=== PATIENT | female | born 1975 | race Caucasian/White ===

== ENCOUNTER 2020-11-08 13:24 | Outpatient (CLI) | payer OTHER, SELFPAY ==
--- NOTE | 2020-11-08 13:31 | US_ITS ---
WS: [id number] THYROID ULTRASOUND History: Nontoxic goiter. Technique: Ultrasound examination of the thyroid and adjacent soft tissues is performed. FINDINGS: Right lobe: 5.6 cm x 1.8 cm x 1.7 cm. Volume: 9.2 cm3. Mildly enlarged gland with a few scattered subcentimeter nodules. There is a colloid cyst in the infe rior pole. No concerning nodule for follow-up. Left lobe: 5.3 cm x 1.7 cm x 1.2 cm. Volume: 5.9 cm3. Normal size gland. There are 2 nodules within the thyroid gland. There is an isoechoic nodule in the mid gland measuring 1.0 x 0.8 x 2.2 cm. There is some mild peripheral vascularity. This nodule is iso echoic to the normal gland without punctate foci. Probably benign. There is an additional subcentimet er nodule in the inferior pole measuring 8 x 6 x 4 mm. Isthmus: 0.3 cm. US/US thyroid [id number] Impression: Isoechoic lobulated nodule in the mid LEFT thyroid gland. Ultrasound features s uggest this is probably benign. Recommend follow-up ultrasound in 12 months.
== END 2020-11-08 13:25 | disposition home or self-care (01) ==
PROVIDERS: PCP Nurse Practitioner Family; Visit Provider Nurse Practitioner Family
DX: E04.9 Nontoxic goiter, unspecified (principal); E04.1 Nontoxic single thyroid nodule
CPT/HCPCS: 76536

== ENCOUNTER 2022-10-08 11:00 | Outpatient (CLI) | payer OTHER, SELFPAY ==
--- NOTE | 2022-10-08 12:24 | XRR_ITS ---
PROCEDURE INFORMATION: Exam: XR Lumbosacral Spine Exam date and time: 10/08/2022 12:25 PM Age: 47 years old Clinical indication: Low back pain; Additional info: Lower back pain TECHNIQUE: Imaging protocol: Radiologic exam of the lumbosacral spine. Views: 2 or 3 views. COMPARISON: CR XR lumbar spine 2-3V* [id number] 01/26/2017 9:52 AM FINDINGS: Bones/joints: Normal. No acute fracture. Normal alignment. Soft tissues: Unremarkable. XR/XR lumbar spine 2-3V* [id number] IMPRESSION: No acute findings.
--- NOTE | 2022-10-08 12:25 | XRR_ITS ---
PROCEDURE INFORMATION: Exam: XR Left Shoulder Exam date and time: 10/08/2022 12:25 PM Age: 47 years old Clinical indication: Pain; Shoulder; Left; Additional info: Lt. Shoulder pain TECHNIQUE: Imaging protocol: Radiologic exam of the Left shoulder. Views: 2 or more views. COMPARISON: CR XR ribs LT 2V* [id number] 04/18/2021 4:19 PM FINDINGS: Bones/joints: Metallic orthopedic hardware is seen in the cervical spine. Negative for acute bony abnormality. Soft tissues: Normal. XR/XR shoulder LT min 2V* [id number] IMPRESSION: 1. No acute left shoulder bone abnormality. 2. Metallic hardware cervical spine.
== END 2022-10-08 11:01 | disposition home or self-care (01) ==
PROVIDERS: PCP Nurse Practitioner Family; Visit Provider Nurse Practitioner Family
DX: M54.50 Low back pain, unspecified (principal); G89.29 Other chronic pain; M54.30 Sciatica, unspecified side; M25.512 Pain in left shoulder
CPT/HCPCS: 72100; 73030

== ENCOUNTER 2022-12-11 10:11 | Outpatient (CLI) | payer OTHER, SELFPAY ==
--- NOTE | 2022-12-11 10:29 | MR_ITS ---
WS: [id number] MRI LUMBAR SPINE NONCONTRAST HISTORY: VERTEBROGENIC LOW BACK PAIN, LEFT leg pain. COMPARISON: 10/08/2022 radiograph TECHNIQUE: Sagittal and axial multisequence imaging is submitted. Cervical fusion at C5-6. T6 benign hemangioma. Normal lumbar alignment with no compression fractures or marrow edema. Minimal disc desiccation at L4-5 without loss of height. Conus terminates normally at L1-2 disc level. L1-L2: Normal. L2-L3: Mild ligamentum flavum hypertrophy. No stenosis. L3-L4: Mild ligamentum flavum hypertrophy. No stenosis. L4-L5: Mild annular disc bulge. There is a small central annular fissure. Mild ligamentum flavum and facet arthritis. Small amount of fluid in the facet joints. There is mild disc contact on the agata ing L5 nerve roots. Slightly greater on the LEFT. No high-grade stenosis. L5-S1: Minimal facet arthritis. No stenosis. Paravertebral soft tissues are normal. MR/MR lumbar spine wo con* [id number] IMPRESSION: 1. No significant disc protrusions or stenosis. 2. Mild annular disc bulge at L4-5 with a central annular fissure. 3. Mild disc bulging at L4-5 is contacting the traversing L5 nerve roots sligh tly greater on the LEFT.
== END 2022-12-11 10:12 | disposition home or self-care (01) ==
PROVIDERS: PCP Nurse Practitioner Family; Visit Provider Nurse Practitioner
DX: M79.605 Pain in left leg (principal); M51.36 Other intervertebral disc degeneration, lumbar region; M51.26 Other intervertebral disc displacement, lumbar region
CPT/HCPCS: 72148

== ENCOUNTER 2023-04-08 22:24 | Emergency (ER) | payer OTHER, SELFPAY ==
[2023-04-08 22:34] VITALS: BP 155/94; PULSE 72; RESP 18; TEMP 36.9; O2SAT 100; BMI 33.8
--- NOTE | 2023-04-08 22:38 | ECG_ITS ---
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 Measurements Intervals [place] Rate: 68 P: 29 NE: 103 QRS: -11 QRSD: 91 T: 17 QT: 362 QTc: 386 Interpretive Statements SINUS RHYTHM WITH SHORT NE INTERVAL No previous ECG available for comparison Electronically Signed On 04-09-2023 12:16:11 CDT by Santhosh Gilmore M.D. [id number]
--- NOTE | 2023-04-08 22:59 | W.ED.CHESTPA ---
HPI - Chest Pain General: Chief Complaint: Chest Pain Stated Complaint: Chest pain Time Seen by Provider: 04/08/23 22:59 History of Present Illness: 47-year-old lady presenting with chest and back pain associated with shortness of breath. Reports intermittent symptoms across her chest with heaviness over the past 2 weeks. Not specifically exertional. [place] different with acute onset today. Severe radiation to the back from the right chest and between her shoulder blades. Mild shortness of breath. Denies known specific provoking event. Has had leg pain though also has apparently rheumatoid arthritis and fibromyalgia. No other specific changes in health, exacerbating, or alleviating factors identified. Review of Systems General: Reports: 10 or more systems reviewed and unremarkable except in HPI and below PFSH ED PFSH: Medical History (Updated 04/21/23 @ 08:25 by Shailesh Rhodes MD) No significant past medical history Surgical History (Updated 04/21/23 @ 08:25 by Shailesh Rhodes MD) No significant past surgical history Physical Exam Const: COMMON NORMALS: alert GENERAL APPEARANCE: cooperative and well developed HENMT: COMMON NORMALS: normocephalic and atraumatic HEAD & SCALP: normocephalic and atraumatic Eye: COMMON NORMALS: conjunctivae normal CONJUNCTIVA: Yes conjunctivae normal SCLERA: sclerae normal Neck/C-Spine: COMMON NORMALS: supple GENERAL: Yes trachea midline Resp: COMMON NORMALS: normal respiratory effort and clear to auscultation bilaterally EFFORT & INSPECTION: Yes able to speak in complete sentences AUSCULTATION: clear to auscultation bilaterally Cardio: COMMON NORMALS: regular rate and regular rhythm RATE: regular rate RHYTHM: regular rhythm GI: COMMON NORMALS: Soft to palpation PALPATION: Yes Soft to palpation and No Tenderness to palpation present (GI) Extremity: GENERAL: Yes normal exam except as noted and No edema Neuro: COMMON NORMALS: moves all extremities SENSORIUM/ORIENTATION: Yes alert and No Orientation impaired Psych: COMMON NORMALS: mental status grossly normal and Normal thought process present THOUGHT PROCESS: Normal thought process present Course Vital Signs: Vital signs: Vital Signs Temperature 98.4 F 04/08/23 22:34 Pulse Rate 54 L 04/09/23 02:52 Respiratory Rate 17 04/09/23 02:52 Blood Pressure 138/67 04/09/23 02:52 Pulse Oximetry 99 04/09/23 02:52 Oxygen Delivery Me thod Room Air 04/09/23 02:30 MDM - Chest Pain Medical Decision Making 47-year-old lady presenting with chest pain and shortness of breath. Currently also having back pain. Exam as above. Nontoxic. EKG notable for sinus rhythm with short MD interval, normal other intervals and axis. No STEMI. Labs with no significant hematologic or embolic abnormalities. Negative initial and 2-hour delta troponin. D-dimer negative. Chest x-ray with no lobar consolidation or pneumothorax. Patient is low risk by heart score. Improved with analgesia, fluids, GI cocktail, antiemetic. Also given aspirin during ED course. The results of ED evaluation were discussed with the patient including prescriptions and/or symptomatic cares (if applicable) including appropriate and responsible use, followup plan, and return precautions. The patient verbalized understanding and felt safe for discharge. Medical Records I reviewed the patient's medical records. Lab Data I reviewed the patient's lab results. 04/08/23 23:24 04/08/23 23:24 Radiology Impressions Chest X-Ray 04/08/23 23:15 IMPRESSION: 1. No definite CHF or pneumonia. 2. Other findings discussed above. Laboratory Results WBC 10.2 10^3/uL (4.0-10.0) H 04/08/23 23: RBC 4.56 10^6/uL (4.1-5.3) 04/08/23 23: Hgb 13.2 g/dL (11.5-15.3) 04/08/23 23: Hct 40.6 % (37.0-47.0) 04/08/23 23: MCV 89.0 fl (81-99) 04/08/23 23: MCH 28.9 pg (28.0-34.0) 04/08/23 23: MCHC 32.5 g/dL (30.0-36.0) 04/08/23 23: RDW 13.1 % (12.1-15.1) 04/08/23 23: Plt Count 228 10^3/cmm (130-400) 04/08/23 23: MPV 10.5 fL (7.4-10.4) H 04/08/23 23: Neut % (Auto) 45.2 % 04/08/23 23:24 Lymph % (Auto) 45.6 % 04/08/23 23:24 Teller % (Auto) 7.3 % 04/08/23 23:24 Eos % (Auto) 1.2 % 04/08/23 23:24 Baso % (Auto) 0.4 % 04/08/23 23:24 Neut # (Auto) 4.63 10^3/uL (1.8-7.7) 04/08/23 23: Lymph # (Auto) 4.7 10^3/uL (0.8-4.8) 04/08/23 23:24 Teller # (Auto) 0.8 10^3/uL (0.2-0.9) 04/08/23 23: Eos # (Auto) 0.1 10^3/uL (0.0-0.8) 04/08/23 23: Baso # (Auto) 0.0 10^3/uL (0.0-0.1) 04/08/23 23: Nucleated RBC % (auto) 0 % 04/08/23 23: Nucleated RBCs # 0.0 /100WBC 04/08/23 23:24 D-Dimer 0.39 ug/mIFEU (0-0.59) 04/08/23 23:24 Sodium 140 mmol/L (136-145) 04/08/23 23:24 Potassium 4.1 mmol/L (3.5-5.1) 04/08/23 23:24 Chloride 104 mmol/L (98-107) 04/08/23 23:24 Carbon Dioxide 24 mmol/L (22-29) 04/08/23 23:24 Anion Gap 16.1 (5-19) 04/08/23 23:24 BUN 22 mg/dL (6-20) H 04/08/23 23:24 Creatinine 0.7 mg/dL (0.5-0.9) 04/08/23 23:24 GFR Calculation 90.5 mL/min (90-130) 04/08/23 23:24 Glucose 100 mg/dL (65-115) 04/08/23 23:24 Calculated Osmolality 293 mOsm/kg (285-295) 04/08/23 23:24 Calcium 9.9 mg/dL (8.5-10.5) 04/08/23 23:24 Total Bilirubin 0.2 mg/dL (0.15-1.2) 04/08/23 23:24 AST 12 U/L (0-32) 04/08/23 23:24 ALT 12 U/L (0-33) 04/08/23 23:24 Alkaline Phosphatase 88 U/L (35-105) 04/08/23 23:24 Troponin T Baseline 6 ng/L (0-10) 04/08/23 23:24 Troponin T 120 Minute 6.00 ng/L (0-10) 04/09/23 01:38 Delta Troponin T 0 ABS# (0-10) 04/09/23 01:38 NT-Pro-B Natriuret Pep 67 pg/mL (0-125) 04/08/23 23:24 Total Protein 7.1 g/dL (6.6-8.7) 04/08/23 23:24 Albumin 4.6 g/dL (3.5-5.2) 04/08/23 23:24 Globulin 2.5 g/dL (1.3-4.6) 04/08/23 23:24 Lipase 49 U/L (13-60) 04/08/23 23:24 Discharge Plan Discharge Patient Disposition: Home Clinical Impression: Chest pain Condition: Stable Discharge Orders: Discharge ED (Routine); Ordered 04/09/23 Ordered By: Shailesh Rhodes Referrals: Rox Padilla FNP [Primary Care Provider] - Discharge Diet: Usual diet Discharge Activity: Resume usual activity Patient Instructions: Chest Pain (ED) Activity Restrictions/Additional Instructions: Thank you for visiting the emergency department. You were seen and evaluated for chest pain. The exact cause of your symptoms is unclear however based on the risk stratification as discussed does not need inpatient management at this time. I will message case management for cardiology follow-up for consideration of additional testing. Please also follow-up with your primary care provider. Return for uncontrolled symptoms or anything else that you are concerned about and feel needs emergency department evaluation. 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
--- NOTE | 2023-04-08 23:15 | XRR_ITS ---
PROCEDURE INFORMATION: Exam: XR Chest Exam date and time: 04/08/2023 11:32 PM Age: 47 years old Clinical indication: Pain; Chest pressure; Additional info: Cp TECHNIQUE: Imaging protocol: Radiologic exam of the chest. Views: 1 view. COMPARISON: CR XR ribs LT 2V* [id number] 04/18/2021 4:19 PM FINDINGS: Lungs: No CHF/pulmonary edema. Visible lungs appear essentially clear. Pleural spaces: No visible pneumothorax. No definite pleural fluid. Heart/Mediastinum: Heart size is within normal limits. Bones/joints: Prior lower cervical spine fusion surgery. XR/XR chest 1V portable [id number] IMPRESSION: 1. No definite CHF or pneumonia. 2. Other findings discussed above.
[2023-04-08] MEDS: aspirin 81 mg Chew Tablet 324 MG PO (23:40)
[2023-04-08] MEDS: sodium chloride 0.9% 1,000 ML 999 ML IV (23:40)
[2023-04-08] MEDS: ondansetron 2 mg/ML SDV 2 mL 4 MG IVP (23:40)
[2023-04-08] MEDS: ketorolac 30 mg/mL INJ 15 MG IVP (23:40)
[2023-04-08 23:41] LABS: Basophils % 0.4 %; Eosinophils # 0.1 10^3/uL (0.0-0.8); Eosinophils % 1.2 %; Hematocrit 40.6 % (37.0-47.0); Hemoglobin 13.2 g/dL (11.5-15.3); Lymphocytes # 4.7 10^3/uL (0.8-4.8); Lymphocytes % 45.6 %; Mean Corpuscular HGB Conc 32.5 g/dL (30.0-36.0); Mean Corpuscular Hemoglobin 28.9 pg (28.0-34.0); Mean Platelet Volume 10.5 fL (7.4-10.4); Monocytes # 0.8 10^3/uL (0.2-0.9); Monocytes % 7.3 %; Neutrophils # 4.63 10^3/uL (1.8-7.7); Neutrophils % 45.2 %; Nucleated Red Blood Cells % 0 %; Platelet Count 228 10^3/cmm (130-400); Red Blood Count 4.56 10^6/uL (4.1-5.3); Red Cell Distribution Width 13.1 % (12.1-15.1); White Blood Count 10.2 10^3/uL (4.0-10.0)
[2023-04-08 23:52] VITALS: BP 156/78; PULSE 56; O2SAT 98
[2023-04-08 23:56] LABS: D Dimer 0.39 ug/mIFEU (0-0.59)
[2023-04-09 00:06] LABS: Troponin(5th) Baseline 6 ng/L (0-10)
[2023-04-09 00:14] LABS: Alanine Aminotransferase 12 U/L (0-33); Albumin Level 4.6 g/dL (3.5-5.2); Alkaline Phosphatase 88 U/L (35-105); Anion Gap 16.1 (5-19); Aspartate Amino Transferase 12 U/L (0-32); Blood Urea Nitrogen 22 mg/dL (6-20); Calcium 9.9 mg/dL (8.5-10.5); Carbon Dioxide 24 mmol/L (22-29); Chloride 104 mmol/L (98-107); Globulin 2.5 g/dL (1.3-4.6); Glomerular Filtration Rate 90.5 mL/min (90-130); Glucose 100 mg/dL (65-115); Lipase 49 U/L (13-60); NT Pro B Type Natriuretic Pept 67 pg/mL (0-125); Osmolality Calculated 293 mOsm/kg (285-295); Potassium 4.1 mmol/L (3.5-5.1); Sodium 140 mmol/L (136-145); Total Bilirubin 0.2 mg/dL (0.15-1.2); Total Protein 7.1 g/dL (6.6-8.7)
[2023-04-09 00:30] VITALS: BP 141/59; PULSE 60; O2SAT 99
[2023-04-09] MEDS: lidocaine 2% viscous 15 ML, aluminum-mag hydrox-simethicon 30 ML, sucralfate oral liq 1 GM PO (00:58)
[2023-04-09 01:00] VITALS: BP 150/69; PULSE 55; RESP 18; O2SAT 99
--- NOTE | 2023-04-09 01:16 | PC.NURSE ---
Pt report received from Lata BEATTY. Rounded on pt, pt resting in bed. Pt denies needs at this time.
--- NOTE | 2023-04-09 01:20 | ECG_ITS ---
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 Measurements Intervals [place] Rate: 62 P: 32 CA: 111 QRS: 3 QRSD: 92 T: 32 QT: 390 QTc: 398 Interpretive Statements SINUS RHYTHM WITH SINUS ARRHYTHMIA WITH SHORT CA INTERVAL LOW QRS VOLTAGE IN PRECORDIAL LEADS [QRS DEFLECTION < 1.0 mV IN CHEST LEADS] Compared to ECG 04/08/2023 22:43:06 Low QRS voltage now present Electronically Signed On 04-09-2023 12:22:20 CDT by Santhosh Gilmore M.D. [id number]
[2023-04-09 01:30] VITALS: BP 128/62; PULSE 53; RESP 10; O2SAT 100
[2023-04-09 02:00] VITALS: BP 138/61; PULSE 52; RESP 18; O2SAT 100
[2023-04-09 02:24] LABS: Troponin 5 2HR Delta 0 ABS# (0-10)
[2023-04-09 02:30] VITALS: PULSE 72; RESP 16; O2SAT 99
[2023-04-09 02:52] VITALS: BP 138/67; PULSE 54; RESP 17; O2SAT 99
== END 2023-04-09 02:57 | disposition home or self-care (01) ==
PROVIDERS: Emergency Provider Emergency Medicine; PCP Nurse Practitioner Family
DX: R07.89 Other chest pain (principal)
CPT/HCPCS: 36415; 71045; 80053; 83690; 83880; 84484; 85025; 85378; 93005; 96361; 96374; 96375; 99285; J1885; J2405; J7030

== ENCOUNTER → 2023-05-20 11:27 | Outpatient (BNVA) | payer OTHER, SELFPAY | PROVIDERS: PCP Family Medicine; Visit Provider Internal Medicine | DX: M25.50 Pain in unspecified joint (principal); G47.00 Insomnia, unspecified; G25.81 Restless legs syndrome; L40.9 Psoriasis, unspecified | CPT/HCPCS: 36415; 72202; 73120; 80053; 82306; 82550; 82607; 82728; 83516; 83540; 83735; 84100; 84443; 84550; 85025; 85651; 86140; 86160; 86162; 86200; 86235; 86255; 86376; 86431; 86480; 86704; 86803; 87340 ==

== ENCOUNTER 2023-07-29 14:27 | Outpatient (CLI) | payer OTHER, SELFPAY ==
[2023-07-29 15:06] LABS: Erythrocyte Sedimentation Rate 4 mm/hr (0-15)
[2023-07-29 15:26] LABS: Creatine Phosphokinase 80 U/L (26-192)
[2023-07-31 15:26] LABS: Beef (27) IgE <0.10 kU/L; Beef Class 0; Lamb (F88) IgE <0.10 kU/L; Lamb Class 0; Pork (F26) IgE <0.10 kU/L; Pork Class 0
[2023-08-02 02:45] LABS: Gliadin Ab.IgA 1.2 U/mL; Gliadin Ab.IgG <1.0 U/mL
[2023-08-02 02:49] LABS: Tissue Transglutaminase IgA Ab <1.0 U/mL; Tissue transglutaminase Ab.IgG <1.0 U/mL
[2023-08-03 16:35] LABS: Immunoglobulin A 122 mg/dL (47-310)
[2023-08-03 19:29] LABS: Galactose-alpha-1,3 IgE <0.10 kU/L (<0.10)
[2023-08-07 00:59] LABS: 14.3.3 ETA Protein <0.2 ng/mL (<0.2)
== END 2023-07-29 14:28 | disposition home or self-care (01) ==
PROVIDERS: PCP Family Medicine; Visit Provider Internal Medicine
DX: G25.81 Restless legs syndrome (principal); G47.00 Insomnia, unspecified; M25.50 Pain in unspecified joint
CPT/HCPCS: 36415; 82550; 82784; 83516; 83520; 85651; 86003; 86008; 86140

== ENCOUNTER → 2023-12-24 08:50 | Outpatient (BNVA) | payer OTHER, SELFPAY | PROVIDERS: PCP Family Medicine; Referring Provider Anesthesiology Pain Medicine; Visit Provider Orthopaedic Surgery | DX: M54.50 Low back pain, unspecified (principal); M54.9 Dorsalgia, unspecified | CPT/HCPCS: 36415; 72072; 72110; 80053; 81003; 85025 ==

== ENCOUNTER 2024-01-08 06:37 | Day surgery (SDC) | payer OTHER, SELFPAY ==
[2024-01-08] VITALS (13 sets, daily range): BP systolic 98–139; BP diastolic 46–90; PULSE 55–86; RESP 14–23; TEMP 36.1–36.9; O2SAT 95–100; BMI 34.7
--- NOTE | 2024-01-08 | XR_ITS ---
WS: [id number] C-ARM RADIOGRAPHS LUMBAR SPINE; 2 IMAGES HISTORY: CHARLIE PICS COMPARISON: None available. Intraoperative imaging during spinal decompression. Decompression marker indicates the L4-5 level on the RIGHT. IMPRESSION: Intraoperative imaging during spinal decompression.
[2024-01-08] MEDS: sodium chloride 0.9% 1,000 ML 30 ML IV (07:41)
--- NOTE | 2024-01-08 08:08 | W.PM.OPSUD ---
Surgery/Procedure H&P Update DATE OF PROCEDURE: January 08, 2024 DATE H&P PERFORMED: 12/24/23 H&P UPDATE INFORMATION: I have reviewed H&P completed within last 30 days, I have examined patient prior to procedure and No changes to prior documentation PREOP DIAGNOSIS: Lumbar stenosis with neurogenic claudication PLANNED PROCEDURE: Operation Date: 01/08/24 08:10 Proposed Procedures p Lumbar Spine Decompression Lumbar Decompression(Not Applicable) - Lb Rebolledo DO
--- NOTE | 2024-01-08 08:18 | ANES.PREANE2 ---
Pre-Anesthetic Assessment Height/Weight: Height 1.57 m Weight 86.183 kg O2 Del Method Room Air 01/08/24 06:49 Preop Diagnosis: Lumbar stenosis with neurogenic claudication Operation Date: 01/08/24 08:10 Proposed Procedures p Lumbar Spine Decompression Lumbar Decompression(Not Applicable) - Lb Rebolledo DO Last intake: Intake Last Liquid Date 01/07/24 Last Liquid Time 21:30 Last Solid Date 01/08/24 Last Solid Time 18:00 Social No alcohol and No tobacco Exam alert, oriented x 3, clear to auscultation bilaterally and regular rate & rhythm Airway Submandibular: within normal limits Cervical ROM: within normal limits Mallampati: Class II Pulmonary Cough Musc/skel Lower Back Pain Anesthetic Plan ASA status: 2 Anesthesia: General Medications/Allergies Home Medications Medication Instructions Recorded Confirmed Last Taken Type pregabalin 50 mg capsule 75 mg PO BID 01/07/24 01/07/24 01/07/24 History ropinirole 1 mg tablet 1 mg PO BID 01/07/24 01/07/24 01/07/24 History oxycodone 5 mg tablet 5 mg PO DAILY 01/08/24 01/08/24 01/04/24 History Allergies Allergy/AdvReac Type Severity Reaction Status Date / Time nalbuphine [From Nubain] Allergy Unknown Verified 01/07/24 16:31 Current Medications Generic Name Dose Route Start Last Admin Trade Name Freq PRN Reason Stop Dose Admin Sodium Chloride 1,000 mls @ 30 mls/hr 01/08/24 07:15 01/08/24 07:41 Sodium Chloride 0.9% IV 30 mls/hr .Q24H ANGIE Administration PFSH Anesthesia Medical History Lumbago No significant past medical history Surgical History No significant past surgical history Data Anesthesia Cardiac Studies: No Data to Display
[2024-01-08] MEDS: ceFAZolin 2,000 MG in sodium chloride 0.9% (plus) 50 ML 100 MG IV (08:24)
[2024-01-08] MEDS: lidocaine-epi 1% 20 mL INJ INJECTION (09:03)
--- NOTE | 2024-01-08 09:20 | P.OP_ITS ---
Operative Report Date of procedure: January 08, 2024 Pre-op diagnosis: Lumbar stenosis with neurogenic claudication Post-op diagnosis: same Procedure done: L4-5 laminectomy with partial facetectomy Surgeon: Lb Rebolledo DO Estimated blood loss (mL): 5 Procedure: L4-5 laminectomy with partial facetectomy Patient is brought to the operative suite. After undergoing anesthesia they are placed in the prone position. All areas of impingement are well padded. Patient is then prepped and draped in the normal sterile fashion. A skin incision is made over the L4-5 level. This is confirmed under c-arm guidance. A series of dilators are passed and the tubular retractor is docked on the L4 lamina. A bovie is used to clear the soft tissue off the lamina and the L 4/5 facet joint. A high speed larry is then used to perform the laminectomy and take down the medial aspect of the L 4/5 facet joint. A kerrison rongeure was then used to take down the remaining lamina and smooth the edge of the laminectomy up to the point where the ligamentum flavum attaches. Attention was then brought to the medial aspect of the facet joint. The remaining medial aspect of the superior and inferior aspect of the facet joint were taken down with the kerrison from the pedicle of L4 to L 5. The facet j oint had significant hypertrophy. Attention was then brought to the Ligamentum Flavum. The ligament was taken down from the lamina of L4 to L5 and out medially to the remaining facet joint. The ligament was thick. The dura was then exposed. The dura was in good repair. The L4 nerve was then traced with a curette out the L4/5 foramen and found to be adequately decompressed. The L5 nerve was traced with a curette around the L5 pedicle. The lateral recess was opened with a kerrison helping to further decompress the L5 nerve. Wound is then irrigated copiously with saline and surgiflo is used to stop any bleeding. The tubular retractor is removed and the wound is closed with vicryl and monocryl suture. Glue is then used to protect the wound. A sterile dressing is then placed. Patient was then placed in the supine position and transferred to the PACU in stable condition.
[2024-01-08] MEDS: fentaNYL 50 mcg/mL INJ 2mL IVP (09:48)
[2024-01-08] MEDS: oxyCODONE 5 mg IR Tab/Cap PO (10:13)
--- NOTE | 2024-01-08 11:17 | ANE.PACU2 ---
Inpatient post-anesthesia follow up: Vital signs: Temperature 98.5 F Pulse Rate 56 Respiratory Rate 18 Blood Pressure 129/56 Pulse Oximetry 100 Oxygen Delivery Me thod Room Air Oxygen Flow Rate Fraction of Inspir ed Oxygen Hydration adequate: Yes Nausea and vomiting: No Pain level: 3 Mental status: Baseline
== END 2024-01-08 10:49 | disposition home or self-care (01) ==
PROVIDERS: PCP Family Medicine; Visit Provider Orthopaedic Surgery
PROC: (CPT 63005; principal; 2024-01-08 08:10)
DX: M48.062 Spinal stenosis, lumbar region with neurogenic claudication (principal)
CPT/HCPCS: 63047; 72100; 76000; J0690; J1100; J1885; J2405; J2704; J3010; J3490; J7030

== ENCOUNTER 2024-06-20 11:36 | Outpatient (CLI) | payer OTHER, SELFPAY ==
--- NOTE | 2024-06-20 11:42 | MR_ITS ---
WS: [id number] MRI CERVICAL SPINE NONCONTRAST TECHNIQUE: Sagittal T1, T2 and STIR imaging. Axial T2, gradient, and fiesta imaging. CLINICAL INFORMATION: CERVICALGIA COMPARISON: None. FINDINGS: Straightening of the normal cervical lordosis. Prior postoperative changes ACDF C5-6. Cord signal is normal. Disc bulging worse C6-7. C2-C3: Mild facet arthropathy. Spinal canal and foramina are patent. C3-C4: Mild facet arthropathy. Spinal canal and foramen are patent. C4-C5: Mild facet arthropathy. Mild disc bulging. Spinal canal and foramen are patent. C5-C6: Postoperative changes ACDF. Mild facet arthropathy. Mild LEFT foraminal narrowing. Mild facet arthropathy. C6-C7: Anterior cervical fusion. Mild disc osteophyte complex with a tiny RIGHT paracentral protrusio n and slight indentation on the cervical cord. Spinal canal remains patent. Mild bilateral bony wade inal narrowing. Mild facet arthropathy. C7-T1: No significant disc bulging. Spinal canal and foramen are patent. Visualized brain stem structures: Normal. Prevertebral soft tissues: Normal. 7.4 mm T2 hyperintense RIGHT thyroid nodule. MR/MR cervical spin wo con* [id number] IMPRESSION: 1. Straightening of the normal cervical lordosis. Prior ACDF C5-6. 2. Tiny RIGHT paracentral protrusion C6-7 with slight indentation of the cervi adria cord. Spinal canal remains patent. 3. Mild LEFT C5-C6 and bilateral C6-C7 bony foraminal narrowing.
== END 2024-06-20 11:37 | disposition home or self-care (01) ==
LOC: RAD 11:37
PROVIDERS: PCP Family Medicine; Visit Provider Anesthesiology Pain Medicine
DX: M43.22 Fusion of spine, cervical region (principal)
CPT/HCPCS: 72141

== ENCOUNTER 2024-06-22 13:59 | Outpatient (CLI) | payer OTHER, SELFPAY ==
--- NOTE | 2024-06-22 14:07 | XRR_ITS ---
PROCEDURE INFORMATION: Exam: XR Cervical Spine Exam date and time: 06/22/2024 2:17 PM Age: 49 years old Clinical indication: Neck pain; Prior surgery; Surgery date: 1-6 months; Surgery type: Fusion c-5/6 in 2011, lumbar decompression in January; Additional info: Absence of spinal instability TECHNIQUE: Imaging protocol: Radiologic exam of the cervical spine. Views: 2 or 3 views. COMPARISON: MR cervical spin wo con* [id number] 06/20/2024 12:14 PM FINDINGS: Bones/joints: There is normal anatomic alignment of the cervical spine. No visible fracture. The patient is status post anterior fusion at C5-C6. No malalignment/dynamic instability when comparing the neutral, flexion and extension views. There is chronic degenerative disc disease at C6-C7. Soft tissues: The prevertebral soft tissues are normal thickness. XR/XR cervical spine 3V* [id number] IMPRESSION: 1. Stable surgical fusion at C5-C6. 2. Chronic degenerative disc disease at C6-C7. 3. No evidence of malalignment/dynamic instability comparing the neutral, flexion and extension views.
== END 2024-06-22 14:00 | disposition home or self-care (01) ==
PROVIDERS: PCP Family Medicine; Visit Provider Anesthesiology Pain Medicine
DX: M50.323 Other cervical disc degeneration at C6-C7 level (principal); M43.22 Fusion of spine, cervical region
CPT/HCPCS: 72040

== ENCOUNTER 2024-08-11 14:48 | Outpatient (CLI) | payer OTHER, SELFPAY ==
--- NOTE | 2024-08-11 15:30 | MR_ITS ---
WS: [id number] MRI THORACIC SPINE noncontrast HISTORY: thoracic pain COMPARISON: None available. TECHNIQUE: Multiplanar sequences are performed in sagittal and axial planes. Slight increase in thoracic kyphosis. Benign hemangiomas at T6 and T9. No fractures. No marrow edema. Signal within the cord is normal. Conus tapers normally at T12-L1. No syrinx or signal abnormality i dentified. T1-2: Normal. T2-3: Normal. T3-4: Normal. T4-5: Normal. T5-6: Normal. T6-7: Mild facet arthritis no stenosis. T7-8: Mild facet arthritis no stenosis. T8-9: Mild bilateral facet arthritis and mild foraminal narrowing. T9-10: Bilateral facet arthritis and mild foraminal stenosis. T10-11: Mild facet arthritis and mild foraminal stenosis. T11-12: Normal. Paravertebral soft tissues are normal. MR/MR thoracic spin wo con* [id number] IMPRESSION: 1. No high-grade central or foraminal stenosis. 2. No destructive bone lesions or fractures. 3. Normal signal in the thoracic cord. 4. Mild facet arthritis from T6-7 through T10-11.
--- NOTE | 2024-08-11 16:15 | MR_ITS ---
WS: [id number] MRI LUMBAR SPINE NONCONTRAST HISTORY: lumbar pain COMPARISON: 12/11/2022 TECHNIQUE: Sagittal and axial multisequence imaging is submitted. Normal lumbar alignment with no compression fractures or marrow edema. Disc spaces and vertebral body heights are well-preserved. Conus terminates normally at L1-2 disc level. L1-L2: Normal. L2-L3: Mild annular disc bulging with ligamentum flavum and mild facet arthritis. Slightly greater di sc encroachment upon the ventral thecal sac with mild subarticular recess encroachment. No high-grade stenosis. L3-L4: Mild disc bulging. Mild ligamentum flavum and facet arthritis. L4-L5: Mild annular disc bulge with a central disc protrusion and annular fissure. Central disc protr usion has slightly increased in size. Slightly greater encroachment upon the LEFT subarticular recess . Moderate ligamentum flavum and facet arthritis. No significant foraminal stenosis. Left-sided hemil aminectomy defect. L5-S1: Mild facet arthritis. No stenosis or disc protrusion. MR/MR lumbar spine wo con* [id number] IMPRESSION: 1. No high-grade central or foraminal stenosis. No fractures or marrow edema. 2. L4-5: Mild asymmetric disc bulging with a central disc protrusion. Slight p rogression of disc disease since the prior study. Slightly greater encroachment upon the LEFT subarticular recess and the traversing LEFT L5 nerve root. [place] r encroachment upon the RIGHT L5 traversing nerve root. 3. L2-3: Mild subarticular recess encroachment without stenosis.
== END 2024-08-11 14:49 | disposition home or self-care (01) ==
PROVIDERS: PCP Family Medicine; Visit Provider Orthopaedic Surgery
DX: M51.26 Other intervertebral disc displacement, lumbar region (principal); M47.896 Other spondylosis, lumbar region; M46.94 Unspecified inflammatory spondylopathy, thoracic region; Z98.890 Other specified postprocedural states
CPT/HCPCS: 72146; 72148

== ENCOUNTER 2024-10-03 14:22 | Outpatient (CLI) | payer OTHER, SELFPAY ==
--- NOTE | 2024-10-03 14:26 | MM_ITS ---
WS: [id number] Bilateral screening 3D tomosynthesis digital mammogram, 10/03/2024 2:29 PM Clinical Data: SCREENING Comparison: 12/03/2017 Findings: No spiculated masses or clustered calcifications are seen. There are no secondary signs of carcinoma . MM/MM scr BI tomosynthesis [id number] Impression: Negative bilateral mammogram unchanged. Recommend annual screening mammograms. BIRADS: 1 - Negative FOLLOW UP: 1 Year Follow-up DENSITY: The breasts are heterogeneously dense, which may obscure small masses. The CAD quality control checker was used
== END 2024-10-03 14:23 | disposition home or self-care (01) ==
PROVIDERS: PCP Family Medicine; Visit Provider Family Medicine
DX: Z12.31 Encounter for screening mammogram for malignant neoplasm of breast (principal); R92.333 Mammographic heterogeneous density, bilateral breasts
CPT/HCPCS: 77063; 77067